=== PATIENT | male | born 1960 | race Caucasian/White ===

== ENCOUNTER 2024-07-17 07:40 | Outpatient (CLI) | payer BC | END 2024-07-17 07:41 | disposition home or self-care (01) | LOC: SCSRAD 07:40 | PROVIDERS: ATTEND Urology | DX: Z01.811 Encounter for preprocedural respiratory examination (principal); C61 Malignant neoplasm of prostate; J84.10 Pulmonary fibrosis, unspecified | CPT/HCPCS: 71046 ==